=== PATIENT | female | born 1975 | race Caucasian/White ===

== ENCOUNTER 2018-11-27 14:39 | Emergency (ER) | payer OTHER ==
--- NOTE | 2018-11-27 15:17 | Emergency Department Report ---
Chief Complaint: Sore Throat Stated Complaint: SORE THROAT/HEADACHE Time Seen by Provider: 11/27/18 15:11 - HPI History of Present Illness: This is a 43 y.o. F that presents to the ER with sore throat and headache x 6 days. Nonsmoker LMP 11/14/18 Taking sudafed and nyquil - Exam Vital Signs: Vital Signs 11/27/18 15:12 Temperature 98.8 F Pulse Rate 95 H Respiratory 16 Rate Blood Pressure 129/74 [Right] O2 Sat by Pulse 99 Oximetry MSE screening note: Focused history and physical exam performed. Due to findings the following was ordered: Rapid strep ED Disposition for MSE Condition: Stable
--- NOTE | 2018-11-27 18:15 | Emergency Department Report ---
ED ENT HPI - General Chief complaint: Sore Throat Stated complaint: SORE THROAT/HEADACHE Time Seen by Provider: 11/27/18 15:11 Source: patient, family Mode of arrival: Ambulatory Limitations: Language Barrier - History of Present Illness Initial comments: Pt is 43 yo female who presents to the ED with c/o a sore throat that began 6 days ago. She has associated subjective fever, bilateral ear pain, rhinorrhea, congestion, and watery eyes. she denies any sick contacts. she states she has been taking sudafed and nyquil without relief. she denies any PMHx, medication allergies, or daily medications. - Related Data Previous Rx's Medication Instructions Recorded Last Taken Type Cetirizine HCl/Pseudoephedrine 1 each PO DAILY #14 tab.er.12h 11/27/18 Unknown Rx [Zyrtec-D Tablet] Fluticasone [Flonase] 1 spray NS QDAY #1 bottle 11/27/18 Unknown Rx Nystas/Diphen/Xyl Visc/Mylanta 30 ml MM Q4H PRN #200 ml 11/27/18 Unknown Rx [Magic Mouthwash] Prednisone [predniSONE 5 mg (6-Day 5 mg PO .TAPER #1 tab.ds.pk 11/27/18 Unknown Rx Pack, 21 Tabs)] Allergies Allergy/AdvReac Type Severity Reaction Status Date / Time No Known Allergies Allergy Unverified 11/27/18 14:41 ED Dental HPI - General Chief complaint: Sore Throat Stated complaint: SORE THROAT/HEADACHE Time Seen by Provider: 11/27/18 15:11 Source: patient, family Mode of arrival: Ambulatory Limitations: Language Barrier - Related Data Previous Rx's Medication Instructions Recorded Last Taken Type Cetirizine HCl/Pseudoephedrine 1 each PO DAILY #14 tab.er.12h 11/27/18 Unknown Rx [Zyrtec-D Tablet] Fluticasone [Flonase] 1 spray NS QDAY #1 bottle 11/27/18 Unknown Rx Nystas/Diphen/Xyl Visc/Mylanta 30 ml MM Q4H PRN #200 ml 11/27/18 Unknown Rx [Magic Mouthwash] Prednisone [predniSONE 5 mg (6-Day 5 mg PO .TAPER #1 tab.ds.pk 11/27/18 Unknown Rx Pack, 21 Tabs)] Allergies Allergy/AdvReac Type Severity Reaction Status Date / Time No Known Allergies Allergy Unverified 11/27/18 14:41 ED Review of Systems ROS: Stated complaint: SORE THROAT/HEADACHE Other details as noted in HPI Comment: All other systems reviewed and negative ED Past Medical Hx - Past Medical History Previous Medical History?: No - Surgical History Past Surgical History?: No - Social History Smoking Status: Never Smoker Substance Use Type: None - Medications Home Medications: Home Medications Medication Instructions Recorded Confirmed Last Taken Type Cetirizine HCl/Pseudoephedrine 1 each PO DAILY #14 tab.er.12h 11/27/18 Unknown Rx [Zyrtec-D Tablet] Fluticasone [Flonase] 1 spray NS QDAY #1 bottle 11/27/18 Unknown Rx Nystas/Diphen/Xyl Visc/Mylanta 30 ml MM Q4H PRN #200 ml 11/27/18 Unknown Rx [Magic Mouthwash] Prednisone [predniSONE 5 mg (6-Day 5 mg PO .TAPER #1 tab.ds.pk 11/27/18 Unknown Rx Pack, 21 Tabs)] ED Physical Exam - General Limitations: Language Barrier General appearance: alert, in no apparent distress - Head Head exam: Present: atraumatic, normocephalic - Eye Eye exam: Present: normal appearance, PERRL - ENT ENT exam: Present: normal orophraynx, mucous membranes moist, TM's normal bilaterally, normal external ear exam, other (pale boggy turbinates bilaterally with clear nasal discharge, no erythema of the turbinates, no purulent drainage, no tonsillar exudates, no tonsillar hypertrophy, uvula is midline) - Respiratory Respiratory exam: Present: normal lung sounds bilaterally. Absent: respiratory distress, wheezes, rales, rhonchi, stridor, chest wall tenderness, accessory muscle use, decreased breath sounds, prolonged expiratory - Cardiovascular Cardiovascular Exam: Present: regular rate, normal rhythm, normal heart sounds. Absent: systolic murmur, diastolic murmur, rubs, gallop - Neurological Exam Neurological exam: Present: alert, oriented X3 - Psychiatric Psychiatric exam: Present: normal affect, normal mood - Skin Skin exam: Present: warm, dry, intact ED Course Vital Signs 11/27/18 15:12 Temperature 98.8 F Pulse Rate 95 H Respiratory 16 Rate Blood Pressure 129/74 [Right] O2 Sat by Pulse 99 Oximetry ED Medical Decision Making - Medical Decision Making VSS. pt presents with sore throat, ear pain, rhinorrhea, congestion, watery eyes. on examination oropharynx is normal tonsils are normal, pt has pale boggy turbinates bilaterally with clear nasal discharge, bilateral TMs and canals are normal. pt given zyrtec, flonase, magic mouthwash, and medrol dose pack. advised to take all medication as prescribed. please follow up with a primary care doctor in the next 2-3 days. given list of community resources. continue to drink plenty of water. return to the emergency room for any new or worsening symptoms. - Differential Diagnosis URI, sinusitis, allergic rhinitis, seasonal allergies Critical care attestation.: If time is entered above; I have spent that time in minutes in the direct care of this critically ill patient, excluding procedure time. ED Disposition Clinical Impression: Seasonal allergies, Pain in throat Allergic rhinitis Qualifiers: Allergic rhinitis trigger: pollen Allergic rhinitis seasonality: seasonal Qualified Code(s): J30.1 - Allergic rhinitis due to pollen Disposition: DC-01 TO HOME OR SELFCARE Is pt being admited?: No Does the pt Need Aspirin: No Condition: Stable Instructions: Allergic Rhinitis (ED), Allergies (ED) Additional Instructions: Please use all medication as prescribed. please follow up with a primary care doctor in the next 2-3 days. given list of community resources. continue to drink plenty of water. return to the emergency room for any new or worsening symptoms. Prescriptions: Fluticasone [Flonase] 1 spray NS QDAY #1 bottle Nystas/Diphen/Xyl Visc/Mylanta [Magic Mouthwash] 30 ml MM Q4H PRN #200 ml PRN Reason: Sore Throat Prednisone [predniSONE 5 mg (6-Day Pack, 21 Tabs)] 5 mg PO .TAPER #1 tab.ds.pk Cetirizine HCl/Pseudoephedrine [Zyrtec-D Tablet] 1 each PO DAILY #14 tab.er.12h Referrals: [facility] [place] [facility] [place] [Primary Care Provider] - 2-3 Days Time of Disposition: 18:12 Print Language: ARMENIAN
[2018-11-27 18:25] VITALS: BP 124/71
== END 2018-11-27 18:23 | disposition home or self-care (01) ==
LOC: ED 14:39
DX: J30.9 Allergic rhinitis, unspecified (principal); J30.2 Other seasonal allergic rhinitis
CPT/HCPCS: 87116; 87430